=== PATIENT | female | born 1965 | race Caucasian/White ===

== ENCOUNTER 2016-12-28 04:27 | Emergency (ER) | payer BC ==
[~2016-12-28] VITALS: Ht 160 cm; Wt 88.3 kg
[~2016-12-28 04:27] MED LIST: Centrum Silver,Certa PO; EFFEXOR XR150 MG PO; Feosol PO; Proventil,Ventolin H IH; Vicodin,Norco 5/325 PO; celeBREX PO
[2016-12-28] MEDS ORDERED: ROBITUSSIN AC,T10 ML PO (04:46)
[2016-12-28] MEDS ORDERED: ZITHROMAX Z-PA250 MG PO (04:46)
[2016-12-28] MEDS ORDERED: DELTASONE20 M1 PO (04:46)
[2016-12-28 05:11] VITALS: BP 138/85
== END 2016-12-28 05:12 | disposition home or self-care (01) ==
LOC: EME 04:27
DX: J20.9 Acute bronchitis, unspecified (principal); J45.909 Unspecified asthma, uncomplicated; Z87.891 Personal history of nicotine dependence
CPT/HCPCS: 99281; 99283; J7512